=== PATIENT | male | born 1975 | race Caucasian/White ===

== ENCOUNTER 2017-11-15 13:42 | Emergency (ER) | payer SELFPAY ==
[2017-11-15] MEDS ORDERED: TDAP ADULT 0.5 ML INJ (BOOSTRIX) IM ONE (15:07)
--- NOTE | 2017-11-15 15:09 | EDPHY ---
H & P Stated Complaint: L arm lac Source: Patient Exam Limitations: No limitations - Personal History Current Tetanus/Diphtheria Vaccine: No Current Tetanus Diphtheria and Acellular Pertussis (TDAP): No - Medical/Surgical History Hx Asthma: Yes Hx Chronic Respiratory Disease: No Hx Diabetes: No Hx Cardiac Disease: No Hx Renal Disease: No Hx Cirrhosis: No Hx Alcoholism: No Hx HIV/AIDS: No Hx Splenectomy or Spleen Trauma: No Other PMH: asthma, UTI - Social History Smoking Status: Current some day smoker Time Seen by Provider: 11/15/17 15:05 HPI/ROS: HPI: This is a 42-year-old male who presents with Chief Complaint: Left forearm laceration Location: Left forearm Quality: Laceration Duration: Prior to arrival Signs and Symptoms: + bleeding, no radiation, no numbness, no weakness, no tingling, no incontinence, no decreased range of motion, no swelling, no pain, no fever Timing: Acute Severity: Moderate Context: Patient is right-hand dominant, was using his friend's [employer] knife, to practice [employer] moves when he accidentally cut his left forearm. He reports that he immediately started to bleed and that it was moderate in nature. He applied direct pressure but the bleeding would not stop. He denies any paresthesias, weakness, decreased range of motion. Unsure of tetanus status. Modifying Factors: Direct pressure, no relief Comment: ROS: see HPI Constitutional: No fever, no chills, no weight loss Eyes: No blurred vision Respiratory: No shortness of breath, no cough Cardiovascular: No chest pain Gastrointestinal: No nausea, no vomiting no diarrhea Genitourinary: No dysuria Extremities: No myalgias Neurologic: No weakness, no numbness Skin: No rashes Hematologic: No bruising, + bleeding MEDICAL/SURGICAL/SOCIAL HISTORY: Medical history: Asthma, UTI Surgical history: Denies Social history: Employed. CONSTITUTIONAL: Middle-aged white male, awake and alert, no obvious distress HEENT: Atraumatic and normocephalic. EXTREMITIES: 2/2 radial pulses, strength 5/5, left forearm inferior to the elbow crease shows 4 in deep, linear, laceration with active bleeding noted from a small vessel. Left ELBOW: Full extension to 180, flexion to 150, no tenderness over medial epicondyle, no tenderness over lateral epicondyle, no effusion. DIP/PIP/MCP flexion/extension intact with good light touch sensation. no deformities, no clubbing, no cyanosis or edema. NEUROLOGICAL: no focal neuro deficits. GCS 15. Light touch sensation intact. SKIN: Warm and dry, no erythema. no rash. Good capillary refill. (Mary Cote) Constitutional: Initial Vital Signs Temperature (C) 36.4 C 11/15/17 13:52 Heart Rate 73 11/15/17 13:52 Respiratory Rate 20 11/15/17 13:52 Blood Pressure 88/60 L 11/15/17 13:52 O2 Sat (%) 98 11/15/17 13:52 O2 Delivery Mode Room Air Allergies/Adverse Reactions: aspirin Allergy (Verified 11/15/17 13:52) Home Medications: Medication Instructions Recorded NK [No Known Home Meds] 11/15/17 Medical Decision Making Procedures: Procedure: Laceration repair. Verbal consent was obtained from the patient. The 4 inch x 1 inch, deep, complex laceration on the left upper forearm was anesthetized in the usual fashion using 12 mL of 0.5% bupivacaine with epinephrine. The wound was irrigated, draped and explored to its base with a gloved finger. Accessory vesicle was tied off with 2-0 PDS. No tendon injury was identified. The wound was repaired with 2 layer closure; #5 2-0 PDS horizontal buried sutures and 4-0 Prolene for subcutaneous layer in simple interrupted pattern. Good hemostasis was achieved and patient tolerated procedure well. The procedure was performed by myself. Procedure: Splint placement. A left long-arm posterior splint was applied by the Emergency Room traffic survey technician. After application of the splint I returned and re-examined the patient. The splint was adequately immobilizing the joint and distal to the splint the patient's circulation and sensation was intact. (Mary Cote) ED Course/Re-evaluation: X-ray imaging not indicated. Tetanus booster provided. Tourniquet placed on patient. Complex closure with vessel tie off. Laceration repaired with 4 0 Prolene. Due to the location of the laceration, placed in long-arm posterior splint to decreased mobility. Written and verbal wound care instructions provided. No signs of neurovascular compromise/tenting of skin/compartment syndrome/ extremities and joints examined above and below area of concern and are neurovascularly intact. This patient was seen under the supervision of my secondary supervising physician. I evaluated care for this patient independently. Discussed this patient with Dr. Amador who did not see the patient. (Mary Cote) Differential Diagnosis: Differential diagnosis includes but is not limited to laceration, nerve injury, tendon injury, vascular injury. (Mary Cote) Other Provider: The patient was evaluated and managed by the Physician Manager Ob. My co- signature indicates that I have reviewed this chart and I agree with the findings and plan of care as documented. I am the secondary supervising physician. (Ivanna Amador) - Data Points Medications Given: Discontinued Medications Diphtheria/Tetanus/Acell Pertussis (Boostrix) 0.5 ml IM .ONCE ONE Stop: 11/15/17 15:08 Last Admin: 11/15/17 15:22 Dose: 0.5 ml Departure - Departure Disposition: Home, Routine, Self-Care Clinical Impression: Laceration of left forearm with complication Qualifiers: Encounter type: initial encounter Qualified Code(s): S51.812A - Laceration without foreign body of left forearm, initial encounter Condition: Good Instructions: Care For Your Stitches (ED), Laceration (ED) Additional Instructions: Keep the splint dry and in place for 3 days. After 3 days, splint may be removed. After 3 days, you may remove the dressing; wash the site daily with mild soap and water; then pat dry. Take Tylenol 650 mg every 4 hours and/or Ibuprofen 600 mg every 8 hours with food as needed for pain. Wound Care Follow-Up: Removal of sutures in [10-14] days. Suture removal is complimentary in uncomplicated cases. Infection or abnormal findings would require reevaluation by the MD. In that case, you may be billed. Follow up with Orthopedics in 7-10 days if you experience any decreased range of motion or decreased sensation or any other concerns. Return to the ER immediately if you experience new or worsening pain, discoloration, numbness, tingling, bleeding, or any other symptoms that concern you. Referrals: Tavo Hair MD [Medical Doctor] - As per Instructions
[2017-11-15 15:32] VITALS: BP 114/78
== END 2017-11-15 15:32 | disposition home or self-care (01) ==
PROC: 0HQEXZZ Repair Left Lower Arm Skin, External Approach (ICD-10-PCS; principal; 2017-11-15)
DX: S51.812A Laceration without foreign body of left forearm, initial encounter (principal); J45.909 Unspecified asthma, uncomplicated; F17.200 Nicotine dependence, unspecified, uncomplicated; Z23 Encounter for immunization; W26.0XXA Contact with knife, initial encounter; Y99.8 Other external cause status; Y93.89 Activity, other specified